=== PATIENT | male | born 1985 | race Caucasian/White ===

== ENCOUNTER 2024-01-05 02:01 | Emergency (ER) | payer OTHER, MEDICAID, SELFPAY ==
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
[2024-01-05 02:23] VITALS: BMI 30.9
[2024-01-05 02:34] VITALS: PULSE 75; O2SAT 100
[2024-01-05] MEDS: ONDANSETRON 4 MG ODT SL (02:54)
[2024-01-05 03:30] VITALS: BP 110/62; PULSE 102; RESP 16; O2SAT 96
--- NOTE | 2024-01-05 03:33 | RT ---
0234 -Pt alert and oriented, natural airway is patent and he is protecting his airway.
[2024-01-05 04:10] VITALS: BP 116/62; RESP 18; TEMP 36.5; O2SAT 97
== END 2024-01-05 04:12 | disposition home or self-care (01) ==
PROVIDERS: Emergency Provider Emergency Medicine
DX: T59.811A Toxic effect of smoke, accidental (unintentional), initial encounter (principal); R06.02 Shortness of breath
CPT/HCPCS: 71046; 99283